=== PATIENT | male | born 1980 | race Caucasian/White ===

== ENCOUNTER → 2018-03-22 | Outpatient (CLI) | payer OTHER | END | disposition home or self-care (01) | LOC: C.PATHSPEC 17:42 | PROVIDERS: ATTEND Urology | DX: Z30.2 Encounter for sterilization (principal) ==

== ENCOUNTER 2018-12-17 00:33 | Observation (INO) ==
[2018-12-17] MEDS ORDERED: ONDANSETRON INJ 2 MG/ML 2 ML VIAL IV STA (00:57)
[2018-12-17] MEDS ORDERED: SODIUM CHLORIDE 0.9% 500 ML IV SCH (01:00)
[2018-12-17] MEDS: MoRPHine SULFATE 4 MG/ML 1 ML CARP\\VIAL IV PRN ×5 (01:06→08:52)
[2018-12-17 01:13] LABS: Basophils # (auto) 0.06 K/uL (0-0.2); Basophils % (auto) 0.6 %; Eosinophils # (auto) 0.56 K/uL (0-0.5); Eosinophils % (auto) 5.3 %; Hematocrit (blood only) 46.6 % (42-52); Hemoglobin 16.1 g/dL (14.0-18.0); Immature Granulocytes # (auto) 0.03 K/uL (0.00-0.02); Immature Granulocytes % (auto) 0.3 %; Lymphocytes # (auto) 3.77 K/uL (1.2-3.4); Lymphocytes % (auto) 35.8 %; Mean Corpuscular Hgb Conc 34.5 g/dL (32-36); Mean Corpuscular Volume 92.3 fL (80-100); Mean Platelet Volume 10.5 fL (7.4-10.4); Monocytes % (auto) 8.5 %; Neutrophils # (auto) 5.21 K/uL (1.4-6.5); Neutrophils % (auto) 49.5 %; Platelet Count 225 K/uL (130-400); RDW Coefficient of Variation 13.3 % (11.5-14.5); RDW Standard Deviation 44.9 fL (36.4-46.3); Red Blood Count 5.05 M/uL (4.7-6.1); White Blood Count 10.53 K/uL (4.8-10.8)
[2018-12-17 01:30] LABS: Alanine Aminotransferase 29 U/L (12-78); Aspartate Aminotransferase 25 U/L (15-37); Blood Urea Nitrogen 17 mg/dl (7-18); Calcium 8.2 mg/dl (8.5-10.1); Carbon Dioxide 27 mmol/L (21-32); Chloride 106 mmol/L (98-107); Est GFR (African American) 104.3; Glucose 110 mg/dl (70-99); Potassium 3.7 mmol/L (3.5-5.1); Sodium 136 mmol/L (136-145)
[2018-12-17 01:32] LABS: Albumin Globulin Ratio 1.3 (0.9-2); Alkaline Phosphatase 54 U/L (45-117); Bilirubin,Total 1.3 mg/dl (0.2-1); Globulin 3.1 gm/dl (2.5-4.0); Total Protein 7.1 gm/dl (6.4-8.2)
--- NOTE | 2018-12-17 02:31 | Emergency Department Note ---
Entered by Will Madden acting as a scribe for Lane Watkins DO History of Present Illness General Chief complaint: Arm Pain Stated complaint: ARM PAIN (THINK ARM IS BROKEN) Time Seen by Provider: 12/17/18 00:50 Source: patient History of Present Illness Provider complaint: Wrist pain Onset (ago): minute(s) 30 Location: right (wrist) Radiation: non-radiation Maximum Pain Intensity: 8 Exacerbated By: + movement Associated symptoms: + denies other symptoms (leg pain) The patient is a 37 year old male who presents to the Emergency Room with complaints of constant wrist pain. The patient stated he slipped on some ice approximately 30 minutes ago and landed on his wrist that was outstretched. The patient states the pain does not radiate and is localized to only in the wrist. The patient rates his pain as an 8/10. The patient added he last had food 4 hours ago. The patient denied leg pain and also denied drinking prior to the fall. The patient denies being on a blood thinner. The patient adds that he does regularly consume alcohol and use tobacco. Home Medications Home Medications Medication Instructions Recorded Confirmed Type No Known Home Medications 12/17/18 12/17/18 History aspirin 81 mg PO DAILY #30 tab 12/17/18 Rx oxycodone-acetaminophen [Percocet] 1 tab PO Q4H PRN #30 tab 12/17/18 Rx Allergies Allergy/AdvReac Type Severity Reaction Status Date / Time Fish Containing Products Allergy Severe Throat Verified 12/17/18 04:10 swelling honey Allergy Severe ANAPHYLAXIS Verified 12/17/18 01:29 egg Allergy Intermediate Itchy Verified 12/17/18 04:07 throat, increased mucous Past Med/Surg History Medical History Reflux esophagitis Alcohol abuse Marijuana abuse No pertinent past medical history Tobacco abuse Social History Current Living Situation: Significant Other Other Information That Helps Us Care for You: No Feels Safe at Home: Yes Safety Concerns: Feels Safe At This Time Smoking Status: Current every day smoker Tobacco Type: cigarettes Do You Dip or Chew Tobacco: No Hx Alcohol Use: Yes Alcohol type: hard liquor Alcohol Intake Frequency: 0-2 drinks per day Hx Substance Use: Yes substance use type: marijuana Last Used Substance: Days ( ago) Beliefs That Will Affect Care: None Preferred Language: Qatari Review of Systems See HPI for pertinent positives & negatives. and A total of 10 systems reviewed and were otherwise negative Physical Exam Vital Signs Vital Signs - 24 hr 12/17/18 00:49 12/17/18 01:19 12/17/18 02:36 Temperature 36.6 C Temperature Source Oral Sepsis Recent Fever Within 48 Hours No Sepsis New/Unexplained Change in Mental Status No Sepsis Action Taken by Nursing No Action Required Pulse Rate 63 Pulse Rate [Finger] 66 Pulse Rhythm [Finger] Pulse Strength [Finger] Respiratory Rate 18 18 Respiratory Effort / Characteristics Non-Labored Spontaneous Non-Labored Spontaneous Respiratory Depth Normal Normal Respiratory Pattern Blood Pressure 152/102 H Blood Pressure [Left Arm] 130/85 Blood Pressure Mean 118 Blood Pressure Mean [Left Arm] 100 Blood Pressure Position [Left Arm] Pulse Oximetry 99 96 Oxygen Delivery Method Room Air Room Air Room Air Oxygen Flow Rate 12/17/18 03:34 12/17/18 03:40 12/17/18 07:49 Temperature 36.8 C 37.0 C Temperature Source Oral Oral Sepsis Recent Fever Within 48 Hours Sepsis New/Unexplained Change in Mental Status Sepsis Action Taken by Nursing Pulse Rate 57 L Pulse Rate [Finger] 61 54 L Pulse Rhythm [Finger] Regular Pulse Strength [Finger] Normal Respiratory Rate 16 15 16 Respiratory Effort / Characteristics Non-Labored Spontaneous Respiratory Depth Normal Normal Respiratory Pattern Regular Blood Pressure 133/86 Blood Pressure [Left Arm] 149/92 H 146/85 H Blood Pressure Mean Blood Pressure Mean [Left Arm] 111 105 Blood Pressure Position [Left Arm] Sitting Lying Pulse Oximetry 97 99 97 Oxygen Delivery Method Room Air Room Air Room Air Oxygen Flow Rate 12/17/18 12:27 12/17/18 12:35 12/17/18 12:45 Temperature 36.9 C Temperature Source Temporal Artery Scan Sepsis Recent Fever Within 48 Hours Sepsis New/Unexplained Change in Mental Status Sepsis Action Taken by Nursing Pulse Rate Pulse Rate [Finger] 69 68 66 Pulse Rhythm [Finger] Regular Regular Regular Pulse Strength [Finger] Respiratory Rate 16 16 16 Respiratory Effort / Characteristics Non-Labored Spontaneous Non-Labored Spontaneous Non-Labored Spontaneous Respiratory Depth Normal Normal Normal Respiratory Pattern Regular Regular Regular Blood Pressure Blood Pressure [Left Arm] 127/69 135/77 117/67 Blood Pressure Mean Blood Pressure Mean [Left Arm] 88 96 83 Blood Pressure Position [Left Arm] Semi-fowlers Semi-fowlers Semi-fowlers Pulse Oximetry 98 98 98 Oxygen Delivery Method Oxymask Oxymask Oxymask Oxygen Flow Rate 10 10 10 12/17/18 12:55 12/17/18 13:05 12/17/18 13:15 Temperature 36.8 C 36.8 C Temperature Source Temporal Artery Scan Temporal Artery Scan Sepsis Recent Fever Within 48 Hours Sepsis New/Unexplained Change in Mental Status Sepsis Action Taken by Nursing Pulse Rate Pulse Rate [Finger] 78 71 65 Pulse Rhythm [Finger] Regular Regular Regular Pulse Strength [Finger] Respiratory Rate 16 16 16 Respiratory Effort / Characteristics Non-Labored Spontaneous Non-Labored Spontaneous Non-Labored Spontaneous Respiratory Depth Normal Normal Normal Respiratory Pattern Regular Regular Regular Blood Pressure Blood Pressure [Left Arm] 121/71 117/64 118/70 Blood Pressure Mean Blood Pressure Mean [Left Arm] 87 81 86 Blood Pressure Position [Left Arm] Semi-fowlers Semi-fowlers Semi-fowlers Pulse Oximetry 98 98 98 Oxygen Delivery Method Nasal Cannula Nasal Cannula Nasal Cannula Oxygen Flow Rate 2 2 2 12/17/18 13:30 12/17/18 14:00 12/17/18 14:37 Temperature 37.0 C Temperature Source Oral Sepsis Recent Fever Within 48 Hours Sepsis New/Unexplained Change in Mental Status Sepsis Action Taken by Nursing Pulse Rate Pulse Rate [Finger] 65 58 L 67 Pulse Rhythm [Finger] Regular Pulse Strength [Finger] Normal Respiratory Rate 16 16 16 Respiratory Effort / Characteristics Non-Labored Spontaneous Respiratory Depth Normal Normal Normal Respiratory Pattern Regular Blood Pressure Blood Pressure [Left Arm] 115/70 130/77 117/67 Blood Pressure Mean Blood Pressure Mean [Left Arm] 85 94 83 Blood Pressure Position [Left Arm] Lying Lying Sitting Pulse Oximetry 98 97 95 Oxygen Delivery Method Nasal Cannula Room Air Room Air Oxygen Flow Rate 2 12/17/18 15:30 12/17/18 15:42 12/17/18 16:37 Temperature 37.0 C 36.8 C 36.8 C Temperature Source Oral Sepsis Recent Fever Within 48 Hours Sepsis New/Unexplained Change in Mental Status Sepsis Action Taken by Nursing Pulse Rate Pulse Rate [Finger] 67 72 72 Pulse Rhythm [Finger] Pulse Strength [Finger] Respiratory Rate 16 18 18 Respiratory Effort / Characteristics Respiratory Depth Respiratory Pattern Blood Pressure Blood Pressure [Left Arm] 117/67 128/72 128/72 Blood Pressure Mean Blood Pressure Mean [Left Arm] 90 Blood Pressure Position [Left Arm] Lying Pulse Oximetry 95 95 95 Oxygen Delivery Method Room Air Oxygen Flow Rate GENERAL: Patient is awake alert in no acute distress patient is resting comfortably and showing no signs of anxiety EYES: The conjunctivae are clear. The pupils are round and reactive. EARS, NOSE, MOUTH AND THROAT: The nose is without any evidence of any deformity. Mucous membranes are moist tongue is midline NECK: The neck is nontender and supple. RESPIRATORY: Normal respiratory effort is noted there is no evidence of wheezing rhonchi or rales CARDIOVASCULAR: Regular rate and rhythm noted there no murmurs rubs or gallops normal S1 normal S2 GASTROINTESTINAL: The abdomen is soft. Bowel sounds are present in all quadrants. Abdomen is nontender MUSCULOSKELETAL/EXTREMITIES: Significant deformity was noted to the right wrist. This has the appearance of a Colles' fracture. There is no open areas. Capillary refill was symmetric. Sensation was intact compared to the left hand over median ulnar and radial nerve distributions. Range of motion testing was difficult because of pain and deformity. SKIN: There is no obvious evidence of any rash. There are no petechiae, pallor or cyanosis noted. NEUROLOGIC: Patient is awake alert and oriented x3. Course 0005: Past medical records reviewed. The patient was evaluated in room A12, and a complete history and physical examination were performed. 0136: The patient's condition was discussed with Dr. Feliz Orthopedicvonnie. The x- rays were sent to him, and he will call back when he reaches a conclusion. 0223: I reviewed the patient's case with Dr. Trini Nguyen. He will evaluate the patient for further management. Administered Medications Discontinued Medications Bacitracin (Bacitracin) Confirm Administered Dose 50,000 units .ROUTE .STK-MED ONE Stop: 12/17/18 06:57 Last Admin: 12/17/18 10:53 Dose: 50,000 units Bupivacaine HCl (Marcaine 0.5% Mpf) Confirm Administered Dose 30 ml .ROUTE .STK- MED ONE Stop: 12/17/18 06:57 Last Admin: 12/17/18 12:04 Dose: Not Given Bupivacaine HCl/Epinephrine Bitart (Sensorcaine/Epinephrine 0.5% Mpf 1:200,000) Confirm Administered Dose 30 ml .ROUTE .STK-MED ONE Stop: 12/17/18 06:57 Last Admin: 12/17/18 10:54 Dose: Not Given Sodium Chloride (Nss) 500 mls @ 999 mls/hr IV .Q31M CHAVA Stop: 12/17/18 01:30 Last Infusion: 12/17/18 01:37 Dose: 0 mls/hr Admin: 12/17/18 01:05 Dose: 999 mls/hr Sodium Chloride (Nss 1000ml) 1,000 mls @ 125 mls/hr IV .Q8H CHAVA Stop: 01/16/19 03:29 Last Admin: 12/17/18 12:51 Dose: Not Given Infusion: 12/17/18 10:30 Dose: 0 mls/hr Infusion: 12/17/18 05:05 Dose: 125 mls/hr Admin: 12/17/18 04:23 Dose: 125 mls/hr Morphine Sulfate (Morphine Sulfate) 4 mg IV Q15M PRN PRN Reason: Pain Stop: 12/31/18 00:56 Last Admin: 12/17/18 02:37 Dose: 4 mg Admin: 12/17/18 01:47 Dose: 4 mg Admin: 12/17/18 01:06 Dose: 4 mg Morphine Sulfate (Morphine Sulfate) 3 mg IV Q3H PRN PRN Reason: Pain Stop: 12/31/18 03:19 Last Admin: 12/17/18 08:52 Dose: 3 mg Admin: 12/17/18 04:23 Dose: 3 mg Morphine Sulfate (Morphine Sulfate) 3 mg IV NOW STA Stop: 12/17/18 06:18 Last Admin: 12/17/18 06:31 Dose: 3 mg Ondansetron HCl (Zofran) 4 mg IV NOW STA Stop: 12/17/18 00:58 Last Admin: 12/17/18 01:06 Dose: 4 mg Medical Decision Making Differential Diagnosis Differential diagnosis: Etiologies such as fracture, dislocation, neurovascular compromise, compartment syndrome, soft tissue injury, as well as others were entertained. . Medical Records Attestation: I reviewed the patient's medical records. Home Medications Current Medication List: was personally reviewed by me Laboratory Data Attestation: I reviewed the patient's lab results. Result diagrams: 12/17/18 01:05 12/17/18 01:05 Lab Results 12/17/18 12/17/18 12/17/18 Range/Units 01:05 01:05 03:51 WBC 10.53 (4.8-10.8) K/uL RBC 5.05 (4.7-6.1) M/uL Hgb 16.1 (14.0-18.0) g/dL Hct 46.6 (42-52) % MCV 92.3 (80-100) fL MCH 31.9 (25-34) pg MCHC 34.5 (32-36) g/dL RDW Std Deviation 44.9 (36.4-46.3) fL RDW Coeff of Laura 13.3 (11.5-14.5) % Plt Count 225 (130-400) K/uL MPV 10.5 H (7.4-10.4) fL Immature Gran % (Auto) 0.3 % Neut % (Auto) 49.5 % Lymph % (Auto) 35.8 % Trigg % (Auto) 8.5 % Eos % (Auto) 5.3 % Baso % (Auto) 0.6 % Immature Gran # (Auto) 0.03 H (0.00-0.02) K/uL Neut # (Auto) 5.21 (1.4-6.5) K/uL Lymph # (Auto) 3.77 H (1.2-3.4) K/uL Trigg # (Auto) 0.90 H (0.11-0.59) K/uL Eos # (Auto) 0.56 H (0-0.5) K/uL Baso # (Auto) 0.06 (0-0.2) K/uL PT 10.5 (9.0-12.0) Seconds INR 1.0 (0.9-1.1) APTT 21.4 (21.0-31.0) Seconds PTT Ratio 0.8 Sodium 136 (136-145) mmol/L Potassium 3.7 (3.5-5.1) mmol/L Chloride 106 (98-107) mmol/L Carbon Dioxide 27 (21-32) mmol/L Anion Gap 3.0 (3-11) BUN 17 (7-18) mg/dl Creatinine 1.04 (0.6-1.4) mg/dl Est Cr Clr Drug Dosing Not Reportable Est GFR ( Amer) 104.3 Est GFR (Non-Af Amer) 90.0 BUN/Creatinine Ratio 16.0 (10-20) Glucose 110 H (70-99) mg/dl Calcium 8.2 L (8.5-10.1) mg/dl Total Bilirubin 1.3 H (0.2-1) mg/dl AST 25 (15-37) U/L ALT 29 (12-78) U/L Alkaline Phosphatase 54 (45-117) U/L Total Protein 7.1 (6.4-8.2) gm/dl Albumin 4.0 (3.4-5.0) gm/dl Globulin 3.1 (2.5-4.0) gm/dl Albumin/Globulin Ratio 1.3 (0.9-2) Lipase 141 (73-393) U/L Imaging Data Attestation: I personally reviewed and interpreted this imaging study as follows : My Impression: 18 Lateral views were obtained of the Right wrist: Colles fracture with dorsal displacement and ulnar styloid fracture. Blood Pressure Blood Pressure Findings: Elevated blood pressure Blood Pressure Disposition: elevated BP felt to be situational MDM Narrative The patient is a 37-year-old male who presented to the emergency department for an evaluation of right wrist pain. The patient had a slip on the ice and fell on an outstretched right hand. He appear to have isolated right wrist pain. The patient had significant deformity and had difficulty moving the right fingers because of pain. He appears to be intact to sensation compared to the left hand. Capillary refill is symmetric. I discussed the patient's laboratory and radiographic studies with him. He was treated with IV fluids as well as IV pain medication. He was also treated with splinting of the right wrist. I discussed his case with the on-call orthopedic physician. He was able to review the films and feels that the patient's condition is likely consistent with a surgical fracture. For this reason the patient is to be admitted to the hospital for surgical management this morning. I discussed this plan with the patient and he was agreeable. Impression & Plan Colles' fracture, Fracture of ulnar styloid Discharge Plan Visit Data *Final* Discharge Date/Time: 12/17/18 03:34 Chief Complaint: Arm Pain Stated Complaint: ARM PAIN (THINK ARM IS BROKEN) ED Provider: Lane Watkins Discharge Problem: Colles' fracture, Fracture of ulnar styloid Patient Disposition: Admitted As Inpatient Discharge Instructions Interventions: ED Discharge Assessment Last Done: 12/17/18 03:34 The scribe's documentation has been prepared under my direction and personally reviewed by me in its entirety. I confirm that the note above accurately reflects all work, treatment, procedures, and medical decision making performed by me.
[2018-12-17] MEDS ORDERED: ONDANSETRON INJ 2 MG/ML 2 ML VIAL IV PRN ×2 (03:21→12:14)
[2018-12-17 04:20] LABS: Partial Thromboplastin Ratio 0.8; Partial Thromboplastin Time 21.4 Seconds (21.0-31.0); Prothrombin Time 10.5 Seconds (9.0-12.0)
[2018-12-17] MEDS: SODIUM CHLORIDE 0.9% 1000ML 1,000 ML IV SCH ×2 (04:23→12:51)
--- NOTE | 2018-12-17 06:14 | XRay Report ---
XR wrist RT min 3V routine CLINICAL HISTORY: 37 years-old Male presenting with fall. TECHNIQUE: Frontal, bilateral oblique, and lateral views of the right wrist were obtained. COMPARISON: None. FINDINGS: Comminuted intra-articular fracture of the distal radial metaphysis. There is significant dorsal impa ction and apex volar angulation. The lunate remains grossly congruent with the articular surface of t he distal radius. Acute fracture of the ulnar styloid process. The distal radial ulnar joint is disru pted with a separate fracture fragment comprising the radial articulation. This results in widening o f the distance between the ulna and radius. Significant surrounding soft tissue swelling. IMPRESSION: 1. Comminuted intra-articular distal radial metaphyseal fracture with disruption of the distal radia l ulnar joint and significant dorsal angulation. 2. Ulnar solid fracture. Electronically signed by: Quentin Becker M.D. 12/17/2018 6:13 AM
[2018-12-17] MEDS ORDERED: MoRPHine SULFATE 4 MG/ML 1 ML CARP\\VIAL IV STA (06:17)
[2018-12-17] MEDS ORDERED: BACITRACIN INJ 50,000 UNIT VIAL ONE (06:56)
[2018-12-17] MEDS ORDERED: BUPIVACAINE 0.5 % 5 MG/1 ML MPF 30ML VIAL ONE (06:56)
[2018-12-17] MEDS ORDERED: BUPIVACAINE/EPINEPHRINE 0.5% MPF 1:200,000 30 ML VIAL ONE (06:56)
--- NOTE | 2018-12-17 07:47 | Anesthesiology Consultation ---
Date of Service December 17, 2018 Assessment & Plan ASA ASA2 Proposed Anesthesia Anesthesia Type: General Regional Regional Laterality: Right Site: Supraclavicular NPO Date Last Intake of Fluids: 12/17/18 Time Last Intake of Fluids: 00:00 Date Last Intake of Solids: 12/17/18 Time Last Intake of Solids: 00:00 History Surgery Operation Date: 12/17/18 09:30 Proposed Procedures p Open Reduction Internal Fixation Distal Radius Fracture(Right) - Travis Salvador DO Height/Weight Height: 5 ft 8 in Weight: 67.2 kg Allergies Allergy/AdvReac Type Severity Reaction Status Date / Time Fish Containing Products Allergy Severe Throat Verified 12/17/18 04:10 swelling honey Allergy Severe ANAPHYLAXIS Verified 12/17/18 01:29 egg Allergy Intermediate Itchy Verified 12/17/18 04:07 throat, increased mucous Medications Home Medications Medication Instructions Recorded Confirmed Last Taken No Known Home Medications 12/17/18 12/17/18 Unknown Active Medications Generic Name Dose Route Start Last Admin Trade Name Freq PRN Reason Stop Dose Admin Sodium Chloride 1,000 mls @ 125 mls/hr 12/17/18 03:30 12/17/18 05:05 Nss 1000ml IV 01/16/19 03:29 125 mls/hr .Q8H CHAVA Infusion Morphine Sulfate 3 mg 12/17/18 03:20 12/17/18 04:23 Morphine Sulfate IV 12/31/18 03:19 3 mg Q3H PRN Administration Pain Past Medical History Medical History Alcohol abuse Marijuana abuse No pertinent past medical history Tobacco abuse Past Anesthesia History No Hx of Anesthesia Complications and No Family Hx of Anesthesia Complications History of PONV No Motion Sickness Screening History of Motion Sickness: No Social History Smoking Status: Current every day smoker tobacco type: cigarettes Do You Dip or Chew Tobacco: No Hx Alcohol Use: Yes Alcohol type: hard liquor alcohol intake frequency: 0-2 drinks per day Hx Substance Use: Yes substance use type: marijuana Last Used Substance: Days (ago) Exercise / Class Metabolic Activity II 4-5 Yardwork/Stairs/Walk up hill Physical Exam Vital Signs Last Vital Signs Temp 36.8 C 12/17/18 03:40 Pulse 61 12/17/18 03:40 Resp 15 02/02/19 03:40 BP 149/92 H 12/17/18 03:40 Pulse Ox 99 12/17/18 03:40 Testing Electrocardiogram Date: 12/17/18 Findings: + NSR @ (at 61;LAD;IRBBB) Laboratory Results 12/17/18 01:05 12/17/18 01:05 PT 10.5 Seconds (9.0-12.0) 12/17/18 03:51 INR 1.0 (0.9-1.1) 12/17/18 03:51 APTT 21.4 Seconds (21.0-31.0) 12/17/18 03:51
[2018-12-17] MEDS ORDERED: MIDAZOLAM HCL 1 MG/ML 2ML VIAL ONE (08:46)
[2018-12-17] MEDS ORDERED: PROPOFOL IV EMULSION 10 MG/ML 20 ML VIAL IV ONE (08:46)
[2018-12-17] MEDS ORDERED: DEXAMETHASONE SOD INJ 4 MG/ML VIAL ONE (08:46)
[2018-12-17] MEDS ORDERED: LIDOCAINE HCL 2% 2 ML VIAL/AMP(20MG/ML) INFIL ONE (08:46)
[2018-12-17] MEDS ORDERED: ONDANSETRON INJ 2 MG/ML 2 ML VIAL ONE (08:46)
[2018-12-17] MEDS ORDERED: fentaNYL citrate 100 MCG/2 ML VIAL ONE (08:47)
[2018-12-17] MEDS ORDERED: ROPIVACAINE 0.5% 5 MG/ML 30 ML VIAL ONE (08:56)
--- NOTE | 2018-12-17 09:44 | History & Physical Bridge Note ---
Date of Service December 17, 2018 History & Physical Bridge Note I have examined the patient, reviewed the History & Physical and in the interval since the performance of the History & Physical I have noted the following changes of clinical significance: no changes noted
--- NOTE | 2018-12-17 09:57 | History & Physical Report ---
Date of Service December 17, 2018 Assessment & Plan (1) Colles' fracture: Schedule right wrist ORIF distal radius fx and closed tx ulnar styloid fx. All potential risks, benefits, complications, alternatives, and rehab have been discussed with the patient and he wishes to proceed. He is going to the OR now. Encounter type: initial encounter Fracture healing: Fracture type: closed Laterality: right Open fracture type: Qualified Code(s): S52.531A - Colles' fracture of right radius, initial encounter for closed fracture (2) Fracture of ulnar styloid: Encounter type: initial encounter Fracture alignment: displaced Fracture healing: Fracture type: closed Laterality: right Open fracture type : Qualified Code(s): S52.611A - Displaced fracture of right ulna styloid process, initial encounter for closed fracture History of Present Illness Chief Complaint: right wrist pain Primary Care Provider: NO PCP The patient sustained a fall on ice late last night. He fell onto an outstretched right hand. He was taken to [facility] ER where x-rays were noted to show a 100% displaced distal radius fx. He was splinted and admitted. He is now being taken to the OR for surgical fixation. Allergies Allergy/AdvReac Type Severity Reaction Status Date / Time Fish Containing Products Allergy Severe Throat Verified 12/17/18 04:10 swelling honey Allergy Severe ANAPHYLAXIS Verified 12/17/18 01:29 egg Allergy Intermediate Itchy Verified 12/17/18 04:07 throat, increased mucous Home Medications Home Medications Medication Instructions Recorded Confirmed Type No Known Home Medications 12/17/18 12/17/18 History Past Med/Surg History Medical History Alcohol abuse Marijuana abuse No pertinent past medical history Tobacco abuse Social History Current Living Situation: Significant Other Other Information That Helps Us Care for You: No Feels Safe at Home: Yes Safety Concerns: Feels Safe At This Time Smoking Status: Current every day smoker Tobacco Type: cigarettes Do You Dip or Chew Tobacco: No Hx Alcohol Use: Yes Alcohol type: hard liquor Alcohol Intake Frequency: 0-2 drinks per day Hx Substance Use: Yes substance use type: marijuana Last Used Substance: Days ( ago) Beliefs That Will Affect Care: None Preferred Language: [place]ese Communication Ability: Effective Postmaster Required: No Physical Exam 2 Vital Signs (Past 24 Hours): Last Vital Signs Temp 37.0 C 12/17/18 07:49 Pulse 54 L 12/17/18 07:49 Resp 16 12/17/18 07:49 BP 146/85 H 12/17/18 07:49 Pulse Ox 97 12/17/18 07:49 Constitutional: WD/WN, vitals as above ENMT: external ear and nose normal, oropharynx normal Neck: trachea midline, no thyromegaly Respiratory: normal respiratory effort, lungs clear to auscultation Cardiovascular: Rate/Rhythm: regular rate and regular rhythm Heart Sounds: normal S1 and normal S2 Gastrointestinal (Abdomen): normal bowel sounds, soft, nontender, no hepatosplenomegaly Musculoskeletal: Extremities: + wrist abnormality Right (Tender distal radius. Deformity noted of the wrist. No ROM or strength testing done.) Skin: no rashes, warm and dry Neurologic: normal touch/pain/proprioception Psychiatric: A+Ox3, euthymic affect Lymphatic: no cervical or axillary lymphadenopathy Results & Data Medications Administered Sodium Chloride (Nss 1000ml) 1,000 mls @ 125 mls/hr IV .Q8H CHAVA Stop: 01/16/19 03:29 Last Infusion: 12/17/18 05:05 Dose: 125 mls/hr Admin: 12/17/18 04:23 Dose: 125 mls/hr Morphine Sulfate (Morphine Sulfate) 3 mg IV Q3H PRN PRN Reason: Pain Stop: 12/31/18 03:19 Last Admin: 12/17/18 08:52 Dose: 3 mg Admin: 12/17/18 04:23 Dose: 3 mg
[2018-12-17] MEDS ORDERED: CEFAZOLIN 250 MG/ML 1 GM VIAL ONE (10:13)
[2018-12-17] MEDS ORDERED: OXYCODONE/ACETAMINOPHEN 5mg/325mg TAB PO PRN (10:20)
[2018-12-17] MEDS ORDERED: CEFAZOLIN 2000MG 2,000 MG/15 ML SYR IV SCH (11:06)
[2018-12-17] MEDS ORDERED: FLUMAZENIL 0.1 MG/1 ML 10 ML VIAL IV PRN (12:14)
[2018-12-17] MEDS ORDERED: ePHEDrine sulfate 50 MG/ML AMP IV PRN (12:14)
[2018-12-17] MEDS ORDERED: PROMETHAZINE HCL 12.5 MG in SODIUM CHLORIDE 0.9% 50 ML IV PRN (12:14)
[2018-12-17] MEDS ORDERED: NALOXONE HCL 0.4 MG/1 ML VIAL/CARP IV PRN (12:14)
[2018-12-17] MEDS ORDERED: ATROPINE SULFATE 0.1 MG/ML 10ML SYR IV PRN (12:14)
[2018-12-17] MEDS ORDERED: HYDROmorphone INJ 1 MG/ML SYRINGE IV PRN (12:14)
--- NOTE | 2018-12-17 12:25 | Post Operative Brief Note ---
Immediate Post Op Note v1 Date of Surgery December 17, 2018 Pre & Post Diagnosis Operation Date: 12/17/18 09:30 Pre-Op Diagnosis: Displaced comminuted, intra-articular, 4 part right distal radial and Ulnar styloid fracture Post-Op Diagnosis: Displaced comminuted, intra-articular, 4 part right distal radial and Ulnar styloid fracture Procedure Operation Date: 12/17/18 09:30 Actual Procedures p Open Reduction Internal Fixation displaced comminuted 4 part intra-articular distal Radius and Ulnar styloid fracture with application splint (Right) - Travis Salvador DO Surgeon Travis Salvador DO [employer] White Printer Operator Malcolm Knutson PA-C Estimated Blood Loss 7 Findings Consistent with Post-Op Diagnosis Specimens None Anesthesia Type General Regional Complications none Disposition Accompanied Patient To Recovery: No Disposition: Recovery Room
--- NOTE | 2018-12-17 13:13 | Anesthesiology Progress Note ---
Date of Service December 17, 2018 Anesthesia Post Procedure Vital Signs Vital Signs: Temp Pulse Pulse Resp BP BP Pulse Ox 12/17/18 13:05 36.8 C 71 16 117/64 98 12/17/18 12:55 78 16 121/71 98 12/17/18 12:45 66 16 117/67 98 12/17/18 12:35 68 16 135/77 98 12/17/18 12:27 36.9 C 69 16 127/69 98 12/17/18 07:49 37.0 C 54 L 16 146/85 H 97 12/17/18 03:40 36.8 C 61 15 149/92 H 99 12/17/18 03:34 57 L 16 133/86 97 12/17/18 02:36 66 18 130/85 96 12/17/18 00:49 36.6 C 63 18 152/102 H 99 Pain Intensity Right Arm: Pain Intensity: 8 Notes Mental Status: alert / awake / arousable Patient Amnestic to Procedure: Yes Nausea / Vomiting: adequately controlled Pain: adequately controlled Airway Patency, RR, SpO2: stable & adequate BP & HR: stable & adequate Hydration State: stable & adequate Anesthetic Complications: no major complications apparent
--- NOTE | 2018-12-17 13:25 | XRay Report ---
XR wrist RT 2V CLINICAL HISTORY: 37 years-old Male presenting with post op. TECHNIQUE: Frontal and lateral views of the right wrist were obtained. COMPARISON: 12/17/2018 at 1:13 AM. FINDINGS: There has been interval buttress plate and screw fixation of the distal radial metaphyseal fracture. Overlying bandage partially obscures underlying osseous detail. Anatomic alignment has been restored. Distal radial ulnar joint is also congruent. IMPRESSION: Interval internal fixation of the distal radial metaphyseal fracture with taoist of normal anato adeel alignment. Electronically signed by: Quentin Becker M.D. 12/17/2018 1:23 PM
--- NOTE | 2018-12-17 13:45 | Fluoroscopy Report ---
FL wrist RT 2V CLINICAL HISTORY: 37 years-old Male presenting with RT WRIST FX. TECHNIQUE: 2 fluoroscopic image(s) recorded as part of an intraoperative procedure. COMPARISON: Plain radiographs from earlier the same day. FINDINGS/IMPRESSION: Interval buttress plate and screw fixation of the comminuted intra-articular distal radial metaphysea l fracture. Normal anatomic alignment has been restored as well as integrity of the distal radial uln ar joint. Please see surgical report for further details. Fluoroscopy dosage (mGy): 3.72. Fluoroscopy time: 222 seconds. Number or time of fluoroscopic spot images: 0. Electronically signed by: Quentin Becker M.D. 12/17/2018 1:44 PM
--- NOTE | 2018-12-17 14:58 | Operative Report ---
DATE OF OPERATION: 12/17/2018 PREOPERATIVE DIAGNOSES: Right displaced comminuted intra-articular 4-part distal radius fracture with ulnar styloid fracture, right upper extremity. POSTOPERATIVE DIAGNOSES: Right displaced comminuted intra-articular 4-part distal radius fracture with ulnar styloid fracture, right upper extremity. PROCEDURE PERFORMED: Open reduction and internal fixation right 4-part intra-articular comminuted distal radius fracture with ulnar styloid fracture with application splint. SURGEON: Travis Salvador DO MESH CUTTER: Malcolm Knutson PA-C who was present for patient positioning, sterile prep and drape, management of retractors and instruments. He was present through the critical portions of the case including wound closure, application of sterile dressing and transport of the patient to recovery. ANESTHESIA: General with regional block. SPECIMENS: None. DRAINS: None. COMPLICATIONS: None. BLOOD LOSS: 7 mL. PERTINENT HISTORY: This is a 37-year-old gentleman who had sustained a slip and fall last evening. He had obvious deformity and pain and swelling of his right distal radius and wrist. He then presented to [facility]. He is evaluated, radiographs performed and noted to have a displaced and angulated fracture of the distal radius and ulna; however, he has eaten right before presentation to the ER and then admitted to the hospital for management in preparation for open reduction and internal fixation of his right wrist fracture. All potential risks, benefits, complications, alternatives, rehab, potential for incomplete relief of symptoms, need for further surgery, DVT, PE, , persistent pain, swelling, scarring, weakness, neurovascular injury, wound complications, hardware failure, nonunion, malunion, bone fracture were discussed with the patient. The patient decided to proceed with the procedure as indicated. DESCRIPTION OF PROCEDURE: The patient was administered a regional block in the right upper extremity in the preop holding area, he was taken to the operative suite, placed supine on the operating room table. I reviewed the consent and identification of proper operative site, the patient was anesthetized, LMA was placed. Tourniquet was placed high on the right upper extremity over cast padding. Right upper extremity was then sterilely prepped and draped in usual fashion, elevated, and exsanguinated with an Esmarch bandage and tourniquet inflated to 250 mmHg. Next, a 15 blade scalpel was used to make an incision just radial to the flexor carpi radialis extending from the wrist joint extending proximally. The incision was deepened into the subcutaneous tissue. Meticulous hemostasis was achieved with electrocautery. Full thickness skin flaps were developed. Sensory cutaneous nerves were identified, freed with a Metzenbaum scissor and retracted with a Jacqueline. Next, the fascia was incised and the house retractors were placed in the incision to retract soft tissues. Next, the neurovascular bundle was identified, carefully freed with a Metzenbaum scissor and retracted radially. Small bridging vessels were then cauterized as necessary revealing the pronator quadratus which was then incised along the radial most border of its insertion with a 15 blade scalpel. Next, this tissue was then sharply elevated from the volar aspect of the distal radius, revealing the comminuted fracture fragments. Fracture was significantly shortened and impacted, also was noted to be intra-articular extension with at least 4 parts of the fracture. Next, using gentle reduction maneuver and manipulation of fracture fragments with a freer elevator, gross reduction was then performed and observed under live fluoroscopic assistance. There was noted to be significant shortening of the distal radius. There was loss of the volar tilt of the distal radius. Next, using K-wire fixation under live fluoroscopic assistance, the distal radius was then reassembled into near anatomic position. Next, a Synthes locking volar distal plate was then affixed to the volar aspect of the distal radius. Using manipulation of the fragments with a freer elevator and maintaining a reduced position of the distal radius, multiple nonlocking and locking screws were placed into the plate to stabilize the fracture in a near anatomic position and alignment. The ulnar styloid then reduced with manipulation of the distal radius and therefore no direct fixation of the ulna was then performed. Next, the wound was copiously irrigated with sterile normal saline and the K-wires were then removed. Final radiographs were obtained in AP and lateral projections noting near anatomic reduction and fixation of the comminuted intra-articular distal radius fracture. The pronator quadratus was then closed using 2-0 Vicryl, the dermis was closed using buried interrupted 3-0 Vicryl and then the skin was closed using 4-0 nylon sutures. Next, a sterile compressive dressing and volar splint was applied, overwrapped with an Nithin wrap. The tourniquet was released. The patient was awakened and taken to the recovery in stable condition. I attest to the content of the Intraoperative Record and any orders documented therein. Any exception s are noted below.
--- NOTE | 2018-12-19 07:26 | Discharge Summary ---
Date of Service December 29, 2018 Admission HPI Per Admitting Provider The patient sustained a fall on ice late last night. He fell onto an outstretched right hand. He was taken to [facility] ER where x-rays were noted to show a 100% displaced distal radius fx. He was splinted and admitted. He is now being taken to the OR for surgical fixation. Principal Diagnosis right distal radius fx, ulnar styloid fx Discharge Exam Constitutional WD/WN, vitals as above ENMT external ear and nose normal, oropharynx normal Neck trachea midline, no thyromegaly Respiratory normal respiratory effort, lungs clear to auscultation Cardiovascular Rate/Rhythm: regular rate and regular rhythm Heart Sounds: normal S1 and normal S2 Gastrointestinal (Abdomen) normal bowel sounds, soft, nontender, no hepatosplenomegaly Musculoskeletal Extremities: + wrist abnormality Skin no rashes, warm and dry Neurologic normal touch/pain/proprioception Psychiatric A+Ox3, euthymic affect Lymphatic no cervical or axillary lymphadenopathy Discharge Data Allergies Allergy/AdvReac Type Severity Reaction Status Date / Time Fish Containing Products Allergy Severe Throat Verified 12/17/18 04:10 swelling honey Allergy Severe ANAPHYLAXIS Verified 12/17/18 01:29 egg Allergy Intermediate Itchy Verified 12/17/18 04:07 throat, increased mucous Consultations 12/17/18 02:28 ED Decision to Admit Stat Procedures Performed Operation Date: 12/17/18 09:30 Actual Procedures p Open Reduction Internal Fixation Distal Radius and Ulnar Fracture(Right) - Travis Salvador DO Ordered Studies 12/17/18 07:00 FL fluoroscopy <1hr Routine FL wrist RT 2V Routine 12/17/18 09:44 US - OR guided needle placemen Stat Hospital Course (1) Colles' fracture: Schedule right wrist ORIF distal radius fx and closed tx ulnar styloid fx. All potential risks, benefits, complications, alternatives, and rehab have been discussed with the patient and he wishes to proceed. He is going to the OR now. After the ORIF was performed 12.10.18, the patient was taken back to his room after recovering in PACU. He was then discharged home. (2) Fracture of ulnar styloid: Total Time Total Time Spent Total Time Spent (In Minutes): 10 Discharge Plan Discharge Items Patient Disposition: Home - Self-Care Reason For Visit: DISPLACED RIGHT RADIAL FX Discharge Diagnosis: right distal radius fracture, ulnar styloid fracture Discharge Goals: Decrease discomfort and Improve function Activity: Per 'Additional Instructions' section Non-emergency contact: Surgeon Call non-emergency contact if: your pain is not controlled, your pain is worsening and your temperature is above 101.5 Diet: Regular Addtl Provider Instructions: ACTIVITY RECOMMENDATIONS: * Avoid lifting anything heavier than a medium water glass until your first post operative visit. SPECIAL CARE INSTRUCTIONS: * Your bandage should be left in place until your first post operative appointment. * Some drainage onto the dressing may occur. This is normal. * If the bandage feels excessively tight, you may loosen the elastic bandage. Then call the physician's office for further instructions. * If possible, keep your hand elevated above the level of your heart for the first 2 post operative days. You may use a sling if necessary. * You should move your fingers regularly (50-100 motions per hour) unless otherwise instructed. SPECIAL PRECAUTIONS: * If you notice increased drainage, fever over 101.5 degrees F. or severe, unremitting pain, call your physician/office at . * You may have been prescribed pain medication. If you experience nausea and/ or skin rash, discontinue this medication and contact our office for an alternative medication. FOLLOW UP VISIT: If appointment is not already scheduled: Please call [facility] to make a follow-up appointment with Dr. Salvador's clinic for 2 weeks after your surgery at . Prescriptions: New aspirin 81 mg tablet,delayed release (DR/EC) 81 mg PO DAILY Qty: 30 RF: 0 oxycodone-acetaminophen [Percocet] 5-325 mg tablet 1 tab PO Q4H PRN (Reason: pain) Qty: 30 RF: 0 No Action No Known Home Medications RF: 0 Stand-Alone Forms: [facility] HAUL, Opioid Pain Management Discharge Orders: Discharge Order (Routine); Ordered 12/17/18 Ordered By: Malcolm Knutson Admission Data Admit Date/Time: 12/17/18 03:11 Attending Provider: Travis Salvador Admit Provider: Travis Salvador Primary Care Provider: PCP,NO Other Providers: Travis Salvador Service: Surgical Services Other Interventions: Discharge Summary Assessment (RN) Last Done: 12/17/18 16:37 DC Date/Time DO NOT enter until pt leaves facility: 12/17/18 17:08
== END 2018-12-17 17:08 | disposition home or self-care (01) ==
LOC: 3W 00:33 → ED 00:33 → 3W 03:34

== ENCOUNTER 2019-11-23 11:42 | Observation (INO) ==
--- NOTE | 2019-11-23 12:25 | History & Physical Bridge Note ---
Date of Service November 23, 2019 History & Physical Bridge Note I have examined the patient, reviewed the History & Physical and in the interval since the performance of the History & Physical I have noted the following changes of clinical significance: no changes noted
--- NOTE | 2019-11-23 12:26 | Pre Anesthesia Assessment ---
Date of Service November 23, 2019 Pre Sedation Assessment Vital Signs Temp Pulse Resp BP Pulse Ox 11/23/19 12:18 37 C 77 16 152/94 H 99 Cardiovascular + regular rate Respiratory + respiratory effort normal Pre-Sedation Airway Assessment Smoking Status: Current every day smoker Hx Sleep Apnea: No Hx Difficult Intubation: No Short, Thick Neck: No Thyromental Distance: > or= 3.5 Finger Breadths Oral Cavity: + WNL Mallampati Class: II ASA: ASA3 Procedure Planning Contraindications for Sedation: none Current Medications Reviewed: Yes Notes The planned sedation has been discussed with the patient. Informed Consent was obtained. I have identified the patient, determined the appropriateness of sedation and have assessed the patient immediately prior to the procedure. All medicine(s) and interventions are by my order.
[2019-11-23] MEDS ORDERED: fentaNYL citrate 100 MCG/2 ML VIAL ONE ×3 (12:57→14:45)
[2019-11-23] MEDS ORDERED: MIDAZOLAM HCL 5 MG/ML 1 ML VIAL ONE ×2 (12:57→14:45)
[2019-11-23] MEDS ORDERED: ISOPROTERENOL HCL 0.2 MG/ML 5 ML AMP IV ONE (13:31)
[2019-11-23] MEDS ORDERED: MIDAZOLAM HCL 1 MG/ML 2ML VIAL ONE ×2 (14:28→14:39)
[2019-11-23] MEDS ORDERED: OXYCODONE HCL IR 5 MG TAB (IMMEDIATE RELEASE) PO PRN (15:22)
[2019-11-23] MEDS ORDERED: ACETAMINOPHEN 325 MG TAB PO PRN (15:22)
--- NOTE | 2019-11-23 15:26 | Post Anesthesia Assessment ---
Date of Service November 23, 2019 Post Sedation Assessment Vital Signs Temp Pulse Resp BP Pulse Ox 11/23/19 12:18 37 C 77 16 152/94 H 99 Recovery Score Activity: Moves 4 extremities Respiration: Deep Breath/Cough Circulation: +/-20% PreAnes Value Consciousness: Arouseable (by name) Oxygen Saturation: > 92% On Room Air Discharge Sedation Level of Care: Fast Track Phase II Post Sedation Plan On clinical assessment, the patient appears to have tolerated the sedation without complications. Patient is recovering as anticipated. Patient will continue to be monitored by nursing and may be discharged when sedation discharge criteria are met per below protocol. Upon Completions of procedure up to 15 minutes continue every 5 minute vital signs and the P.A.R. score; then discharge to a Phase I or Fast Track to Phase II per the following guidelines: * Discharge Patient to appropriate Phase II area if PAR is 8 or greater or return to pre- procedure baseline. The post - procedure orders will be as directed. * If PAR score is less than 8 or not return to pre-procedure baseline then patient will follow Phase I monitoring till PAR is reached for Phase II. The Phase I may be done in procedure room or may call to secure a Phase I area. * If naloxone or flumazenil are used for reversal, hold in Phase I for continued monitoring from when last reversal dose was given for a minimum of 60 minutes or longer pending the nurse and/or physician discretion of patient condition before discharge to Phase II. Please call the Sedation Physician to re-evaluate and complete post-note for discharge to Phase II area. Do NOT discharge from procedure sedation or Phase 1 until post- sedation evaluation note is complete by procedure /sedation MD Sedation Discharge Instructions to be given to the patient at discharge to home.
--- NOTE | 2019-11-23 15:28 | Post Operative Brief Note ---
Cardiology Brief Post Op Date of Surgery November 23, 2019 Pre & Post Diagnosis Operation Date: 11/23/19 13:00 <No data on this case meets the specified criteria> Procedure EPS and ablation of postero-septal AP Family Law Attorney Trevon Walden MD Master Fire Control Technician none Estimated Blood Loss 10 Findings See Below Pre-excitation at baseline. Inducible ORT employing a right postero-septal bypass tract. Successful ablation without evidence of pathway conduction or inducible tachycardia Complications none Disposition Accompanied Patient To Recovery: No Disposition: PCU Overlapping Procedure I was immediately available: during the entire case.
--- NOTE | 2019-11-24 12:36 | Electrocardiogram Report ---
Test Reason : Blood Pressure : / mmHG Vent. Rate : 079 BPM Atrial Rate : 079 BPM P-R Int : 148 ms QRS Dur : 142 ms QT Int : 418 ms P-R-T Axes : 082 -43 018 degrees QTc Int : 479 ms Normal sinus rhythm Possible Left atrial enlargement Left axis deviation Right bundle branch block Abnormal ECG When compared with ECG of 02-NOV-2019 20:48, Right bundle branch block has replaced Non-specific intra-ventricular conduction block Confirmed by Lane Andres ([id number]) on 11/24/2019 12:36:04 PM Referred By: Hesham Walden Confirmed By:Lane Andres
--- NOTE | 2019-11-24 12:56 | Discharge Summary ---
Date of Service November 23, 2019 Admission HPI Per Admitting Provider Zbydx-Orehumkrd-Tfpun syndrome Principal Diagnosis q Discharge Data Allergies Allergy/AdvReac Type Severity Reaction Status Date / Time Fish Containing Products Allergy Severe Throat Verified 11/23/19 12:17 swelling honey Allergy Severe ANAPHYLAXIS Verified 11/23/19 12:17 egg Allergy Intermediate Itchy Verified 11/23/19 12:17 throat, increased mucous Procedures Performed Operation Date: 11/23/19 13:00 Actual Procedures p EPS + Ablation +3D Map for VT - MD vonnie Gutierrez Drug Stimulation - MD vonnie Gutierrez Ultrasound Vascular Access - MD vonnie Gutierrez LA Pacing (Add-On) - Hesham Walden MD Ordered Studies 11/23/19 07:00 EP Lab Images for PACS ONCE Hospital Course (1) Fpghe-Wpdtcadjq-Csvls syndrome: On the day of admission the patient underwent ablation for Tedkk-Fxvgcvgqk-Pjmwv syndrome. The procedure was successful and uncomplicated. He was discharged the same day. Total Time Total Time Spent Total Time Spent (In Minutes): 5 Discharge Plan Discharge Items Patient Disposition: Home - Self-Care Reason For Visit: ABLATION Discharge Diagnosis: SVT, Bhpf-Kmrvoqmen-Qfnrr Condition on Discharge: Good Activity: Per Instructions section Activity Comment: NO straining or lifting >10# for 5 days Lifting: No more than 10 pounds Bathing: No limitations Exercise/Sports: Gradually increase as tolerated Driving/Machine Use: Resume 1 day after discharge Non-emergency contact: Emt/Paramedic Call non-emergency contact if: you have any medication questions and your symptoms worsen Follow-up/Referrals: Sunitha Watson MD [Primary Care Provider] - Diet: Regular Addtl Attending Provider Instructions: none Pending Studies at Discharge: No Stand-Alone Forms: [employer], Smoking Cessation Medications and DC Order Prescriptions: Continued Centrum Silver 0.4-300-250 mg-mcg-mcg Tablet 1 tab PO DAILY RF: 0 Discharge Orders: Discharge Order (Routine); Ordered 11/23/19 Ordered By: Hesham Walden Admission Data Admit Date/Time: 11/23/19 15:21 Attending Provider: Hesham Walden Admit Provider: Hesham Walden Primary Care Provider: Sunitha Watson Other Interventions: Discharge Summary Assessment (RN) Last Done: 11/23/19 21:07 DC Date/Time DO NOT enter until pt leaves facility: 11/23/19 21:19
--- NOTE | 2019-11-30 13:09 | Electrophysiology Report ---
Date of Service November 23, 2019 Electrophysiology Procedure Electrophysiology Procedure Report Procedure performed ablation of SVT, complete electrophysiologic testing including pacing from the left atrium via the coronary sinus, arrhythmia induction using programmed stimulation with isoproterenol, 3 dimensional electro anatomical mapping Staff cured meats supervisor: Trevon Walden MD Indication: Patient is a 38-year-old gentleman with a long history palpitations and tachycardia who was recently evaluated our facility for pre excited atrial fibrillation. Subsequent to cardioversion the patient was noted to have pre- excitation. 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 Procedure in detail: Patient was appraised of the risks benefits and alternatives to the intended procedure. He understood which proceed. Is doing did electrophysiology suite in a fasting state. Patient was monitored electrocardiographically of days procedure and conscious sedation was administered per protocol. The right femoral and right internal jugular as were prepped and draped in usual sterile fashion. These areas were anesthetized using subcutaneous menstruation lidocaine and Marcaine solution. The inter jugular vein was subsequently access using modified Seldinger technique under ultrasound guidance and 6 Belarusian venous sheath was placed at the site over guidewire. Right femoral vein was accessed 3 times using modified Seldinger technique and sheath were placed over guidewires at the sites. She is resistant to a passage of the EP catheters to the respective chambers under fluoroscopic guidance. This included right ventricular coronary sinus and his bundle catheters. Patient's baseline conduction system was characterize. Standard pacing maneuvers including programmed stimulation were then performed on and off isoproterenol in order to induce the tachycardia. Once the tachycardia was induced characteristics of the tachycardia were identified. but the elements of the tachycardia were known a radiofrequency ablation catheter was advanced to the area of interest. Three- dimensional electro anatomical mapping was performed in order to guide ablation. Radiofrequency lesions were then placed in a temperature limited mode until the arrhythmia was no longer inducible. He repeat electrophysiologic testing including program stimulation on and off isoproterenol was then performed subsequent to ablation. At the conclusion of the case the sheaths and catheters were removed. Hemostasis was achieved at the access sites using manual pressure. The patient tolerated the procedure well. There were no immediate complications. Findings: Baseline intracardiac intervals cycling the atrium 911 millisecond cycling in the ventricle 950 milliseconds QRS duration 103 milliseconds AR interval 161 milliseconds AH interval 71 milliseconds HV interval 40 milliseconds av Wenckebach could not be performed as no decremental conduction was present in the baseline state. Atrial refractory period was 260 milliseconds ventricular refractory period was 240 milliseconds accessory pathway refractory period in the antegrade fashion was 300 20 milliseconds there was evidence of pre-excitation in the baseline state Program stimulation from the ventricle appeared to be concentric but there was no decremental conduction With rapid atrial pacing, there was progressive lengthening of the QRS duration and effectively more pre-excitation tachycardia: With program stimulation from the atrium a narrow complex tachycardia was induced tachycardia cycle length was 313 milliseconds the VA time was 90 milliseconds his refractory PVCs introduced during the tachycardia advance the atrial signal and reset the tachycardia Ventricular entrainment could not be performed at this commonly terminated the tachyarrhythmia ablation: At this point it was felt that the patient had a posterior septal accessory pathway with inducible 0 RT. A 7 Belarusian 4 millimeter radiofrequency ablation catheter was advanced to the area around the inferior septum in the right atrium. three-dimensional electro anatomical mapping was employed pacing from both the atrium and the ventricle in order to identify the shortest atrial or ventricular signal Roving catheter was also employ in order to identify pathway potentials radiofrequency lesions were placed with good power and temperature at the area of short AV interval with a presumed assess Re pathway potential With the successful radiofrequency application pre-excitation terminated within 3 seconds. A successful location for ablation was in the posterior right atrium approximately 1 centimeter lateral to the inter atrial septum Post ablation intervals: Cycle length in the atrium 866 milliseconds Cycling in the ventricle 164 milliseconds Omkar duration 148 milliseconds P.r.n. 1. One hundred twenty-nine milliseconds AH interval 76 milliseconds HV interval 52 milliseconds [address] Wenckebach occurred at 320 milliseconds AV node effective fracture. 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 No evidence of dual AV magali physiology Successful ablation of posterior septal accessory pathway without any evidence of pre-excitation or pathway conduction at the conclusion of the case No inducible tachycardia subsequent to ablation Right bundle branch block at baseline and the conclusion of the case otherwise normal conduction intervals [facility] Electrophysiology codes EP Procedure 1: Electrophysiology: 16604 EPS and Ablation SVT Procedure 2: Electrophysiology: 69282-48 Comp EPS w/LA pacing Procedure 3: Electrophysiology: 57175 Arrhythmia induction Procedure 4: Electrophysiology: 51675 Drug Stimulation Procedure 5: Electrophysiology: 55030 3D mapping
== END 2019-11-23 21:19 | disposition home or self-care (01) ==
LOC: 2S 11:42 → EP 11:42